=== PATIENT | female | born 1940 | race African-American/Black ===

== ENCOUNTER 2022-12-02 15:52 | Emergency (ER) | payer OTHER ==
[2022-12-02 16:11] VITALS: BP 119/63; PULSE 77; RESP 18; TEMP 98.8; BMI 21.4
== END 2022-12-02 18:44 | disposition home or self-care (01) ==
LOC: JERFT 15:52
DX: S30.0XXA Contusion of lower back and pelvis, initial encounter (principal); W18.2XXA Fall in (into) shower or empty bathtub, initial encounter
CPT/HCPCS: 72100-TC-FY; 99283-25